=== PATIENT | female | born 1985 | race Caucasian/White ===

== ENCOUNTER 2020-04-23 17:40 | Emergency (ER) | payer OTHER ==
[~2020-04-23] VITALS: Ht 157.5 cm; Wt 79.4 kg
[~2020-04-23 17:40] MED LIST: ACETAMINOPHEN-1 EAC1 PO; CIPROFLOXACIN500 M1 PO; CLEOCIN HCL150 MG PO; FLAGYL 250 MG250 MG PO; FLEXERIL PO; HYDROCODONE-AP1 EAC6 PO; NOHOMEMEDICATIONS; NORCO 10-325 T1 EACH PO; PERCOCET 5-3251 EACH PO; PREDNISONE 20 M20 MG PO; PROZAC20 MG PO
[2020-04-23 18:14] VITALS: BP 134/71
[2020-04-23] MEDS ORDERED: NORCO 5-325 TA1 EAC2 PO (18:16)
== END 2020-04-23 18:19 | disposition home or self-care (01) ==
LOC: M.ERS 17:40
DX: S90.31XA Contusion of right foot, initial encounter (principal); F41.9 Anxiety disorder, unspecified; Z98.51 Tubal ligation status; W55.19XA Other contact with horse, initial encounter; Y93.89 Activity, other specified; Y92.89 Other specified places as the place of occurrence of the external cause; Y99.8 Other external cause status

== ENCOUNTER 2021-03-11 04:22 | Emergency (ER) | payer OTHER ==
[~2021-03-11] VITALS: Ht 160 cm; Wt 93.0 kg
[~2021-03-11 04:22] MED LIST changes: +NORCO 5-325 TA1 EAC2 PO
[2021-03-11] MEDS ORDERED: BUSPAR30 MG PO (04:58)
[2021-03-11] MEDS ORDERED: SEROQUEL 100 M100 M1 PO (04:58)
[2021-03-11] MEDS ORDERED: PROTONIX40 M2 PO (04:58)
[2021-03-11] MEDS ORDERED: ADDERALL 10 MG10 MG PO (04:59)
[2021-03-11] MEDS ORDERED: ADDERALL XR 3030 MG PO (04:59)
[2021-03-11] MEDS ORDERED: IBUPROFEN 800800 M1 PO (05:00)
[2021-03-11] MEDS ORDERED: AMOXICILLIN 50500 MG PO (05:00)
[2021-03-11] MEDS ORDERED: PERIDEX 0.12%473 M1 PO (05:02)
[2021-03-11 06:29] VITALS: BP 131/82
== END 2021-03-11 06:29 | disposition home or self-care (01) ==
LOC: M.ERS 04:22
DX: K08.89 Other specified disorders of teeth and supporting structures (principal); Z98.51 Tubal ligation status; Z79.899 Other long term (current) drug therapy

== ENCOUNTER 2021-03-13 12:06 | Emergency (ER) | payer OTHER ==
[~2021-03-13] VITALS: Ht 160 cm; Wt 90.7 kg
[~2021-03-13 12:06] MED LIST changes: +ADDERALL 10 MG10 MG PO; +ADDERALL XR 3030 MG PO; +AMOXICILLIN 50500 MG PO; +BUSPAR30 MG PO; +IBUPROFEN 800800 M1 PO; +PERIDEX 0.12%473 M1 PO; +PROTONIX40 M2 PO; +SEROQUEL 100 M100 M1 PO
[2021-03-13] MEDS ORDERED: CLEOCIN HCL150 MG PO ×2 (12:27→14:24)
[2021-03-13 14:34] VITALS: BP 163/96
== END 2021-03-13 14:35 | disposition home or self-care (01) ==
LOC: M.ERS 12:06
DX: K04.7 Periapical abscess without sinus (principal); Z98.51 Tubal ligation status